=== PATIENT | male | born 1950 | race Caucasian/White ===

== ENCOUNTER → 2016-10-30 | Outpatient (CLI) | payer OTHER ==
--- NOTE | 2016-10-30 16:18 | MRI ---
EXAM DESCRIPTION: MRI right shoulder CLINICAL HISTORY: Right shoulder pain. Limited range of motion COMPARISON: None. TECHNIQUE: Multiplanar, multisequence MR images of the right shoulder FINDINGS: Complete supraspinatus tendon tear retracted to the glenoid neck. Moderate to severe muscle volume loss with grade 2 fatty infiltration. Complete infraspinatus tendon tear retracted to the glenoid neck. Moderate to severe muscle volume loss with grade 2 fatty infiltration. Teres minor tendon intact. Normal muscle volume and signal. Severe tendinosis and high-grade tendon thinning subscapularis, chronic partial tear sparing thin bursal fibers. There is a resorptive cyst in the lesser tuberosity. The subscapularis muscle volume loss is moderate with grade 2 fatty infiltration Long head biceps tendinosis and interstitial partial tear with tendon fissuring and attenuation. There may be a complete tear, adherent in the bicipital groove. Intra-articular tendon is not clearly delineated. Labral degeneration of the entire superior labrum. Blunting and irregularity with abnormal signal. There is a large tubular multiloculated para labral cyst extending into the suprascapular notch. The largest component extends medially, anterior to the supraspinatus tendon measuring 1.9 x 1.6 x 2.5 cm. The other component paralabral cyst lies along the posterior superior glenoid rim and is more complex, measuring approximately 1.9 x 3 x 0.9 cm Glenoid chondral thinning superiorly with marginal chondrosis, sublabral glenoid rim osteophyte and edema. Chondral thinning and irregularity diffusely over the superior humeral head related to chronic contact with the undersurface of the acromion. Scalloped remodeling of the acromion with subacromial enthesophyte and inferior acromial spur. There is an inferior medial humeral head osteophyte projecting about the axillary recess. Small joint effusion without focal synovitis or intra-articular body Moderate acromioclavicular osteoarthritis IMPRESSION: Chronic massive rotator cuff tear with complete tears of the supraspinatus and infraspinatus tendons retracted to the glenoid neck. Associated muscle volume atrophy High-grade chronic partial-thickness tear subscapularis with diffuse tendon thinning Labral degeneration primarily affecting the superior labrum with a large multiloculated para labral cyst extending medially and anteriorly to the supraspinatus and also along the posterior superior glenoid rim Electronically signed by: Papito Valderrama MD 10/30/2016 4:17 PM CDT
== END | disposition home or self-care (01) ==
LOC: MRI 07:51
PROVIDERS: ATTEND Nurse Practitioner Family
DX: M75.121 Complete rotator cuff tear or rupture of right shoulder, not specified as traumatic (principal); X58.XXXA Exposure to other specified factors, initial encounter

== ENCOUNTER → 2017-05-09 | Outpatient (CLI) | payer OTHER | LOC: GMA 10:19 | PROVIDERS: ATTEND Family Medicine | DX: Z12.5 Encounter for screening for malignant neoplasm of prostate (principal) ==

== ENCOUNTER → 2017-11-15 | Outpatient (CLI) | payer MEDICARE, OTHER | LOC: GMAL 16:41 | PROVIDERS: ATTEND Family Medicine | DX: N39.0 Urinary tract infection, site not specified (principal) ==

== ENCOUNTER 2018-05-27 05:49 | Day surgery (SDC) | payer MEDICARE, OTHER ==
[2018-05-27] MEDS ORDERED: TROP 1%/CYCLOPEN 1%/PHENYL 2% DROPS OPHTH ONE (05:50)
[2018-05-27] MEDS ORDERED: MIDAZOLAM INJ 2 MG/2 ML VIAL ONE (06:49)
[2018-05-27] MEDS ORDERED: PROPARACAINE 0.5% OPHTH SOL 15 ML BTTL LEFT_EYE ONE (14:01)
[2018-05-27] MEDS ORDERED: LIDOCAINE 1% MPF 5 ML VIAL INJ ONE (14:16)
[2018-05-27] MEDS ORDERED: DEXAMETHASONE 0.1% OPHTH SOL 1 DROP LEFT_EYE ONE ×2 (14:17→14:31)
[2018-05-27] MEDS ORDERED: TOBRAMYCIN SULF 0.3 % OPHT SOL 1 DROP LEFT_EYE ONE ×2 (14:17→14:31)
[2018-05-27] MEDS ORDERED: BRIMONIDINE 0.2% OPHTH DROPS LEFT_EYE ONE ×2 (14:17→14:31)
== END 2018-05-27 15:05 | disposition home or self-care (01) ==
LOC: AMB 05:49
PROVIDERS: ATTEND Ophthalmology
DX: H25.12 Age-related nuclear cataract, left eye (principal); I10 Essential (primary) hypertension; E11.36 Type 2 diabetes mellitus with diabetic cataract; F17.200 Nicotine dependence, unspecified, uncomplicated
CPT/HCPCS: 00142; 36416; 66984; 82948; J2250

== ENCOUNTER 2018-06-10 05:48 | Day surgery (SDC) | payer MEDICARE, OTHER ==
[2018-06-10] MEDS ORDERED: PROPARACAINE 0.5% OPHTH SOL 15 ML BTTL ONE (10:44)
[2018-06-10] MEDS ORDERED: TROP 1%/CYCLOPEN 1%/PHENYL 2% DROPS ONE (10:46)
[2018-06-10] MEDS ORDERED: MIDAZOLAM INJ 2 MG/2 ML VIAL ONE ×2 (12:01→12:08)
[2018-06-10] MEDS ORDERED: PROPARACAINE 0.5% OPHTH SOL 15 ML BTTL RIGHT_EYE ONE (12:07)
[2018-06-10] MEDS ORDERED: BRIMONIDINE 0.2% OPHTH DROPS RIGHT_EYE ONE ×2 (12:14→12:24)
[2018-06-10] MEDS ORDERED: LIDOCAINE 1% 2 ML VIAL INJ ONE (12:14)
[2018-06-10] MEDS ORDERED: TOBRAMYCIN SULF 0.3 % OPHT SOL 1 DROP RIGHT_EYE ONE ×2 (12:14→12:24)
[2018-06-10] MEDS ORDERED: DEXAMETHASONE 0.1% OPHTH SOL 1 DROP RIGHT_EYE ONE ×2 (12:14→12:24)
== END 2018-06-10 12:56 | disposition home or self-care (01) ==
LOC: AMB 05:48
PROVIDERS: ATTEND Ophthalmology
DX: H25.11 Age-related nuclear cataract, right eye (principal); I10 Essential (primary) hypertension; I25.10 Atherosclerotic heart disease of native coronary artery without angina pectoris; E11.36 Type 2 diabetes mellitus with diabetic cataract; J44.9 Chronic obstructive pulmonary disease, unspecified; F17.200 Nicotine dependence, unspecified, uncomplicated; Z79.82 Long term (current) use of aspirin; Z79.84 Long term (current) use of oral hypoglycemic drugs; Z79.899 Other long term (current) drug therapy
CPT/HCPCS: 00142; 66984; 82948; J2250

== ENCOUNTER → 2018-08-06 | Outpatient (CLI) | payer MEDICARE, OTHER | LOC: GMAL 10:28 | PROVIDERS: ATTEND Family Medicine | DX: D51.3 Other dietary vitamin B12 deficiency anemia (principal); E55.9 Vitamin D deficiency, unspecified; E11.9 Type 2 diabetes mellitus without complications; Z12.5 Encounter for screening for malignant neoplasm of prostate | CPT/HCPCS: 82306; 82607; G0103 ==

== ENCOUNTER → 2019-05-14 | Outpatient (CLI) | payer MEDICARE, OTHER | LOC: GMAL 11:44 | PROVIDERS: ATTEND Family Medicine | DX: R23.3 Spontaneous ecchymoses (principal) ==

== ENCOUNTER → 2019-07-16 | Outpatient (CLI) | payer MEDICARE, OTHER ==
--- NOTE | 2019-07-16 14:38 | CT ---
EXAM DESCRIPTION: Abdomen/Pelvis w/wo Contrast CLINICAL HISTORY: 68 years Male, HEMATURIA COMPARISON: None available. TECHNIQUE: Contiguous 3 mm axial images were obtained from the lung bases to the level of the proximal femora before and after the administration of intravenous and oral contrast. Sagittal and coronal reconstructions were reviewed. FINDINGS: THORAX: The imaged lower thorax demonstrates no gross abnormality. LIVER: The liver demonstrates normal size and density with no intrahepatic biliary ductal dilatation or focal masses. GALLBLADDER: Grossly unremarkable. PANCREAS: Appears normal with no cystic or solid lesions. SPLEEN: Normal ADRENAL GLANDS: Normal with no nodules or masses. KIDNEYS: Nonobstructive calculi measuring up to 5 mm are noted in the upper poles of both kidneys. No hydronephrosis.No focal masses are identified. The visualized ureters appear grossly unremarkable. STOMACH: Small hiatal hernia with reflux. The stomach is not well-distended limiting detailed evaluation. SMALL BOWEL: The small bowel loops demonstrate variable degrees of distention with no abnormal dilatation or other signs to suggest bowel obstruction. LARGE BOWEL: Majority of the colon is not well-distended limiting detailed evaluation. The appendix is not definitively visualized. No evidence of free intraperitoneal air or fluid. RETROPERITONEUM: The abdominal aorta is nonaneurysmal with moderate to severe atherosclerosis. The inferior vena cava is normal in size and caliber. No abnormally enlarged retroperitoneal lymph nodes are identified. URINARY BLADDER:The urinary bladder is well-distended with no gross abnormality. The prostate gland and seminal vesicles appear normal. ADDITIONAL FINDINGS: None. BONES: Moderate to severe degenerative changes are identified in the visualized bones.No evidence of osteophytic or osteoblastic lesions. IMPRESSION: 1. Nonobstructive calculi measuring up to 5 mm are noted in the upper poles of both kidneys. No hydronephrosis. 2. No other urographic abnormality is noted. This exam was performed according to our departmental dose-optimization program, which includes automated exposure control, adjustment of the mA and/or kV according to patient size and/or use of iterative reconstruction technique. Electronically signed by: Shari Beltran MD 07/16/2019 2:36 PM [employer]OP TAILOR APPRENTICE
== END ==
LOC: LAB.O 10:45
PROVIDERS: ATTEND Family Medicine
DX: N20.0 Calculus of kidney (principal); I10 Essential (primary) hypertension; E11.9 Type 2 diabetes mellitus without complications

== ENCOUNTER 2019-07-18 05:37 | Day surgery (SDC) | payer MEDICARE, OTHER ==
[2019-07-18] MEDS ORDERED: LIDOCAINE 1% 10 ML VIAL INJ ONE (07:00)
[2019-07-18] MEDS ORDERED: PROPOFOL 200 MG/20 ML VIAL IV ONE (07:00)
[2019-07-18] MEDS ORDERED: LACTATED RINGERS 1,000 ML ONE (07:13)
[2019-07-18 08:18] VITALS: O2SAT 99
[2019-07-18 09:37] VITALS: BP 128/78; TEMP 98.3
--- NOTE | 2019-07-18 10:09 | OP ---
DATE OF PROCEDURE: 07/18/19 PREOPERATIVE DIAGNOSIS: 1. Abdominal pain. 2. History of black stools. POSTOPERATIVE DIAGNOSIS: 1. Normal EGD. PROCEDURE: 1. Esophagogastroduodenoscopy. SURGEON: Leander Conde MD ANESTHESIA: General. FINDINGS: The esophagus appeared normal. There was a slight hiatal hernia, maybe a slight gastritis in the antrum. He is on blood thinners, so a biopsy was not taken. It was not significant. The duodenum was normal. COMPLICATIONS: None. ESTIMATED BLOOD LOSS: None. CONDITION: Stable. PLAN: Discharge. INDICATION: The patient had presented with a history of intermittent constipation and passing very dark stool. He also had some general abdominal complaints. He had a scope 3 years ago that was normal. He has not had an upper GI, so he was consented for that procedure. PROCEDURE: General anesthesia was induced in the lateral position and the patient was made comfortable. A bite block was placed. The scope was introduced. The posterior pharynx appeared normal. We went down the esophagus and entering the stomach, we found the pylorus. There was not any evidence of ulcers in the stomach. We entered the duodenum to the third portion and it was normal as well with no evidence of ulcers. Upon retroflexion, there was a just slight hiatal hernia. Again, no evidence of ulcers, maybe a slight gastritis appearance. No striping. No biopsy was performed as the patient is on blood thinners. Upon withdrawal, the esophagus was more carefully examined and no abnormalities were seen. The patient tolerated the procedure and was taken to Recovery to be discharged. #[id number] [facility]
== END 2019-07-18 09:05 | disposition home or self-care (01) ==
LOC: AMB 05:37
PROVIDERS: ATTEND Surgery
DX: R10.13 Epigastric pain (principal); K44.9 Diaphragmatic hernia without obstruction or gangrene; R19.5 Other fecal abnormalities; I10 Essential (primary) hypertension; E11.9 Type 2 diabetes mellitus without complications; K59.00 Constipation, unspecified; E78.00 Pure hypercholesterolemia, unspecified; F17.200 Nicotine dependence, unspecified, uncomplicated; Z86.718 Personal history of other venous thrombosis and embolism; Z79.84 Long term (current) use of oral hypoglycemic drugs; Z79.01 Long term (current) use of anticoagulants; Z79.899 Other long term (current) drug therapy
CPT/HCPCS: 00731; 36416; 43235; 82948; J3490; J7120

== ENCOUNTER → 2019-08-01 | Outpatient (CLI) | payer MEDICARE, OTHER ==
--- NOTE | 2019-08-01 19:38 | US ---
EXAM DESCRIPTION: Venous,Lower Extremity LT: ULTRASOUND. CLINICAL HISTORY: DVT left calf for 6 weeks. COMPARISON: None Available. TECHNIQUE: Penny-scale and doppler sonographic evaluation of the deep venous system of the left lower extremity. FINDINGS: Decreased color flow and venous waveform in the left popliteal vein, left peroneal vein, and the posterior tibial vein. Increased echogenicity and decreased compression utilizing grayscale technique with transducer pressure. Normal color flow and normal phasicity and augmentation of the left common femoral vein, femoral vein, popliteal vein, greater saphenous vein, junction with the CFV. These left lower extremity deep veins were completely compressible; normal occlusion with transducer pressure. Penny-scale survey showed no echogenic thrombus within these veins. IMPRESSION: 1. Duplex ultrasound evaluation of the left lower extremity deep venous system showing residual thrombosis, in the left popliteal vein, left peroneal vein, and left posterior tibial vein. 2. No deep venous thrombosis in the left common femoral vein and left femoral vein. No thrombosis in the junction of the left common femoral vein and superficial greater saphenous vein. Electronically signed by: Alexis Rodríguez MD 08/01/2019 7:37 PM TRANSPORTATION EQUIPMENT PAINTER
== END ==
LOC: US 09:25
PROVIDERS: ATTEND Internal Medicine Medical Oncology
DX: I82.432 Acute embolism and thrombosis of left popliteal vein (principal); I82.452 Acute embolism and thrombosis of left peroneal vein; I82.442 Acute embolism and thrombosis of left tibial vein

== ENCOUNTER → 2020-01-05 | Outpatient (CLI) | payer MEDICARE, OTHER ==
--- NOTE | 2020-01-05 15:34 | US ---
EXAM DESCRIPTION: Venous,Lower Extremity LT: ULTRASOUND. CLINICAL HISTORY: LEG PAIN AND SWELLING COMPARISON: Same examination on August 01, 2019. TECHNIQUE: Penny-scale and doppler sonographic evaluation of the deep venous system of the left lower extremity. FINDINGS: Doppler evaluation shows normal color flow and normal phasicity and augmentation of the left common femoral vein, femoral vein, popliteal vein, greater saphenous vein, junction with the CFV. Also normal color flow and normal phasicity and augmentation of the peroneal, and posterior tibial vein. The left lower extremity deep veins were completely compressible; normal occlusion with transducer pressure. Penny-scale survey showed no echogenic thrombus within these veins. Hypoechoic circumscribed mass in the medial calf subcutaneous adipose tissue minimal vascular flow. IMPRESSION: 1. Duplex ultrasound evaluation of the left lower extremity deep venous system showing no evidence of thrombosis. Significant improvement compared to the prior study which showed deep venous thromboses in July 2019. 2. Superficial left medial calf vein with thrombosis. Electronically signed by: Alexis Rodríguez MD 01/05/2020 3:33 PM CDT
== END ==
LOC: US 12:56
PROVIDERS: ATTEND Internal Medicine Medical Oncology
DX: I82.812 Embolism and thrombosis of superficial veins of left lower extremity (principal); M79.89 Other specified soft tissue disorders

== ENCOUNTER → 2020-05-28 | Outpatient (CLI) | payer MEDICARE, OTHER ==
--- NOTE | 2020-05-28 22:12 | US ---
EXAM DESCRIPTION: Venous,Lower Extremity LT: ULTRASOUND. CLINICAL HISTORY: SWELLING. Left lower extremity. Previous DVT left lower extremity in July 2019. No DVT left lower extremity seen on duplex ultrasound December 2019. COMPARISON: See above. TECHNIQUE: Penny-scale and doppler sonographic evaluation of the deep venous system of the left lower extremity. FINDINGS: Doppler evaluation shows diminished venous Doppler color and waveforms in 1 branch of a duplicated left femoral vein. On grayscale imaging, thrombus can be seen within the vein and the vein is not compressible with the transducer. Similar findings in the left peroneal vein. Doppler evaluation shows Normal color flow and normal phasicity and augmentation of the left common femoral vein, second branch of the duplicated femoral vein, popliteal vein, left greater saphenous vein, junction with the CFV. Also normal color flow and normal phasicity and augmentation of the left posterior tibial vein. The left lower extremity deep veins were completely compressible; normal occlusion with transducer pressure. Penny-scale survey showed no echogenic thrombus within these veins. IMPRESSION: 1. Duplex ultrasound evaluation of the left lower extremity deep venous system showing thrombosis in one branch of a duplicated left femoral vein, and the left peroneal vein distal to the knee. 2. Remaining veins of the deep venous system of the left lower extremity and the junction of the left greater saphenous vein with the left common femoral vein are unremarkable with no thrombosis. CRITICAL COMMUNICATION: The critical value was communicated directly by Dr. Rodríguez via phone call, with Dr. Venkatesh Hdez, at approximately 1005 hours, on May 28, 2020. Electronically signed by: Alexis Rodríguez MD 05/28/2020 10:10 PM [facility]
== END ==
LOC: US 12:29
PROVIDERS: ATTEND Internal Medicine Medical Oncology
DX: I82.412 Acute embolism and thrombosis of left femoral vein (principal); I82.452 Acute embolism and thrombosis of left peroneal vein; M79.89 Other specified soft tissue disorders

== ENCOUNTER → 2020-06-14 | Outpatient (CLI) | payer MEDICARE, OTHER ==
--- NOTE | 2020-06-15 10:53 | RAD ---
XR ABDOMEN 1 VIEW (KUB) HISTORY: 69 years Male BILATERAL RENAL STONES COMPARISON: CT abdomen and pelvis dated July 16, 2019. TECHNIQUE: Single AP view of the abdomen. FINDINGS: Bowel gas pattern is nonspecific. No evidence of gastrointestinal obstruction. No radiographic evidence of free air. Punctate 2 mm calcific density projects over the upper left renal silhouette and corresponds to a calcification seen on the prior comparison study in the upper pole of the left kidney. No additional pathologic calcification is identified. Included osseous structures demonstrate no acute abnormality. Multilevel degenerative changes again seen in the included spine. IMPRESSION: 2 mm calcific density corresponds to the location to an upper pole left renal calcification seen on the prior comparison CT. In this again may represent a nonobstructive calculus. No additional pathologic calcifications identified. Electronically signed by: Benny Borrero MD 06/15/2020 10:51 AM [facility]
== END ==
LOC: RAD 14:37
PROVIDERS: ATTEND Urology
DX: N20.0 Calculus of kidney (principal)

== ENCOUNTER → 2020-09-07 | Outpatient (CLI) | payer MEDICARE, OTHER ==
--- NOTE | 2020-09-07 22:29 | US ---
EXAM DESCRIPTION: Venous,Lower Extremity LT: ULTRASOUND. CLINICAL HISTORY: SWELLING. Thrombosis in 1 branch of a duplicated left femoral vein, left greater saphenous vein junction with the left common femoral vein, and in the left peroneal vein COMPARISON: May 2020 TECHNIQUE: Penny-scale and doppler sonographic evaluation of the deep venous system of the left lower extremity. FINDINGS: Echogenic thrombus indicating chronic process in the bifurcation of the left common femoral vein. Also residual chronic thrombus in one branch of the left femoral vein, and in the left popliteal vein and the peroneal vein. These veins were partially compressible with the transducer, with decreased Doppler flow and venous waveforms. Doppler evaluation shows normal color flow and normal phasicity and augmentation of the left common femoral vein, one branch of the left femoral vein, and junction of the left common femoral vein and left greater saphenous vein. Also normal color flow and normal phasicity and augmentation of the left posterior tibial vein. These left lower extremity deep veins were completely compressible; normal occlusion with transducer pressure. Penny-scale survey showed no echogenic thrombus within these veins. IMPRESSION: 1. 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 2. Remaining deep veins of the left lower extremity are unremarkable. Electronically signed by: Alexis Rodríguez MD 09/07/2020 10:27 PM WHEEL BLOCKER
== END ==
LOC: US 15:00
PROVIDERS: ATTEND Internal Medicine Medical Oncology
DX: I82.512 Chronic embolism and thrombosis of left femoral vein (principal); I82.532 Chronic embolism and thrombosis of left popliteal vein; I82.552 Chronic embolism and thrombosis of left peroneal vein